=== PATIENT | female | born 1945 ===

== ENCOUNTER 2016-07-05 13:29 | Observation (INO) | payer OTHER ==
[2016-07-05] MEDS ORDERED: KETOROLAC 30 MG/1 ML SDV IVP PRN (16:50)
[2016-07-05] MEDS ORDERED: ONDANSETRON 4 MG/2 ML VIAL IVP PRN (16:50)
[2016-07-05] MEDS ORDERED: ACETAMINOPHEN 325 MG TAB PO PRN (16:50)
--- NOTE | 2016-07-05 17:33 | GHP ---
[f rep st] HISTORY AND PHYSICAL DATE OF ADMISSION: 07/05/2016 DATE OF EVALUATION: 07/05/2016 CHIEF COMPLAINT: Chest pain. HISTORY: The patient is a 71-year-old female, transferred here from [facility]. She is visiting from [place] and arrived last Saturday. Shortly after arrival, she developed shortness of breath. Last evening, she developed chest pain. This was a left-sided chest pain, radiating to her shoulder and scapula. She describes it as a stabbing, pleuritic pain. She did have a similar pain, around [place] time while she was in [place]. She presented this morning to [facility] and had an observation there. CT angiogram of the chest was negative for pulmonary embolus. She had negative troponins but did have some anterior T-wave inversions, and so she was transferred down to [place] for stress testing, which is not available in [place]. PAST MEDICAL HISTORY: 1. Hypertension. 2. Pulmonary embolus x2; the first one was , the second one was related to a breast reduction surgery and both considered provoked. 3. GERD. 4. Hypothyroidism. 5. Chronic pancreatitis, recently diagnosed of unknown etiology. She recently had an ERCP with bile duct dilatation and an endoscopic ultrasound in [place]. 6. Hyperlipidemia. PAST SURGICAL HISTORY: 1. Appendectomy. 2. Cholecystectomy. 3. Hysterectomy. MEDICATIONS: Please see the computer record for a full, detailed list. ALLERGIES: Penicillin and lisinopril. SOCIAL HISTORY: No smoking. No alcohol. She lives with her . She is a retired nurse. She lives in [facility] and vacationing at the [facility] in [place]. REVIEW OF SYSTEMS: Complete review of systems obtained. Review of systems negative on constitutional, HEENT, GI, pulmonary, cardiovascular, , hematologic, endocrine, and psych, except for positives as in HPI. FAMILY HISTORY: Her brother had a heart attack in his 50s. PHYSICAL EXAMINATION: GENERAL: Well-developed, well-nourished female, in no acute distress. VITAL SIGNS: Temperature is 36.8, pulse 48, blood pressure is 128/21, saturating 93% on room air. Eye examination: Normal conjunctiva. Pupils reactive to light. ENT: Normal ears and nose. Hearing intact. Normal teeth. Oropharynx moist. NECK: Trachea midline. No thyromegaly. CHEST: Normal effort. LUNGS: Clear to auscultation bilaterally. CARDIOVASCULAR: Regular rhythm. No murmur. No lower extremity edema. ABDOMEN: Soft, nontender. No hepatosplenomegaly. SKIN: Warm, dry, intact. No rash. MUSCULOSKELETAL: No cyanosis or clubbing. Strength 5/5 upper and lower extremities. NEUROLOGIC: Cranial nerves intact. Normal sensation to light touch. PSYCHIATRIC: Alert and oriented x3. Normal affect. Normal judgment. Normal memory. Medical records reviewed from [place]. She had a CT angiogram of the chest that was negative for pulmonary embolus. There was a very small right pleural effusion. Admission history and physical was reviewed. She presented complaining of chest pain since the evening before. EKG reviewed my personal interpretation is sinus rhythm, some anterior T-wave inversions V1 and V2. Multiple EKGs reviewed. One of them has a deeper T-wave inversion in V2, which may be lead placement. ASSESSMENT/PLAN: 1. Chest pain. Troponins have been negative at [place]. She does, however , have some anterior T-wave inversions. We will continue to follow serial troponins and EKGs. We will continue her aspirin and check a lipid panel. Will order an exercise stress test with nuclear medicine in the morning. I query whether many of her symptoms may have been altitude related. 2. Pulmonary embolus x2. Both of these episodes were provoked. Her CTA, done at [place], was negative for PE. She is, however, high risk and will be given deep Lovenox at prophylactic doses. 3. Chronic pancreatitis of unclear etiology. We will continue her pancreatic enzymes. 4. Hypertension. Home medications will be clarified and continued. CODE STATUS: Full. ADMISSION STATUS: Will admit to observation, as she may be able to discharge tomorrow if stress testing is negative. I did recommend that she not return to [place] and remain at a lower altitude. DVT PROPHYLAXIS: Will prescribe subcutaneous Lovenox, as discussed above. /[id number]/MODL MTDD
[2016-07-05] MEDS ORDERED: hydrALAZINE 20 MG/ML VIAL IVP PRN (18:35)
[2016-07-05] MEDS ORDERED: HYDROCHLOROTHIAZIDE 12.5 MG CAP PO SCH (20:00)
[2016-07-05] MEDS ORDERED: traZODone 50 MG TAB PO SCH (21:00)
[2016-07-05] MEDS ORDERED: PREGABALIN 75 MG CAP PO SCH (21:00)
[2016-07-06] MEDS ORDERED: LEVOTHYROXINE 75 MCG TAB PO SCH (06:00)
[2016-07-06 07:58] VITALS: RESP 16
[2016-07-06] MEDS ORDERED: CETIRIZINE 10 MG TAB PO SCH (09:00)
[2016-07-06] MEDS ORDERED: ENOXAPARIN 40 MG/0.4 ML SYR SC SCH (09:00)
[2016-07-06] MEDS ORDERED: BISOPROLOL FUMARATE 5 MG TAB PO SCH (09:00)
[2016-07-06] MEDS ORDERED: PANTOPRAZOLE SODIUM 40 MG TAB PO SCH (09:00)
[2016-07-06] MEDS ORDERED: ASPIRIN EC 81 MG TAB PO SCH (09:00)
[2016-07-06] MEDS ORDERED: Ropinirole Hcl [Requip Xl] 4 MG PO SCH (09:00)
[2016-07-06] MEDS ORDERED: KETOCONAZOLE 2% 15 GM CREAM TP SCH (09:00)
[2016-07-06] MEDS ORDERED: ESCITALOPRAM OXALATE 10 MG TAB PO SCH (09:00)
[2016-07-06] MEDS ORDERED: ATORVASTATIN CALCIUM 10 MG TAB PO SCH (09:00)
[2016-07-06] MEDS ORDERED: REGADENOSON 0.4 MG/5 ML SYR IVP ONE (10:38)
[2016-07-06 11:59] VITALS: BP 132/64; PULSE 63; TEMP 98.3; O2SAT 93
--- NOTE | 2016-07-06 12:11 | CPR ---
[f rep st] NONINVASIVE CARDIAC PROCEDURE REPORT DATE OF PROCEDURE: 07/06/2016 PROCEDURE: Lexiscan nuclear stress test. INDICATION: The patient is a 71-year-old female who presented to the hospital complaining of sharp b ack discomfort which radiated to her chest and arm. The discomfort occurred while she was resting an d was persistent, which prompted her to seek medical treatment. Her discomfort was relieved with nit roglycerin and oxygen in the ER. Her risk factors for coronary artery disease include hypertension, hyperlipidemia, and a family history of coronary disease. Her brother and grandfather both have a hi story of coronary disease. DESCRIPTION OF PROCEDURE: Consent was obtained and the patient was placed on continuous telemetry. Her resting EKG revealed sinus bradycardia with a rate of 56. She has T-wave abnormalities in V2 and V3. There is ST elevation in the inferior leads consistent with a repolarization abnormality. Sami sweeney we attempted to exercise. She walked on the treadmill for just under 6 minutes and complained of 5/10 back discomfort at approximately 4 minutes into exercise. She also developed fairly signific ant shortness of breath and therefore the exercise portion of the study was discontinued. She did re ceive a bisoprolol yesterday morning. She reached a heart rate of 121 beats per minute, but unfortun ately she did not reach 85% of her age-predicted maximum heart rate. I did not feel she was going to be able to walk for an additional minute after injection and therefore she was switched over to Iveth scan. While she complained of chest discomfort, her EKG showed normal sinus rhythm with slightly fla ttening of her ST's in the anterior leads. She remained in normal sinus rhythm with the Lexiscan inf usion. She did have shortness of breath, but that was secondary to exercise and not necessarily the infusion. Her blood pressure at rest was 118/74 and it returned to baseline early in the recovery ph ase. PLAN: Await nuclear images. /[id number]/MODL
--- NOTE | 2016-07-06 12:37 | NM ---
Nuclear Medicine Myocardial Perfusion Stress and Rest Imaging With Lexiscan History: Chest pain. Comparison Studies: None available. Technique: Rest imaging performed with intravenous administration of 10.8 mCi of technetium 99m labe led sestamibi. Stress imaging performed with the intravenous administration of 25.1 mCi of technetium 99m sestamibi labeled with the administration of 0.4 mg of Lexiscan. Findings: Normal left ventricular ejection fraction of 86%. Stress and rest imaging demonstrates no e vidence of fixed or reversible defects to suggest ischemia or infarct. No focal wall motion abnormali ties. Impression: 1. Normal left ventricular ejection fraction of 86%. 2. No focal wall motion abnormalities. 3. No definite ischemia or infarct.
--- NOTE | 2016-07-06 13:03 | CPEKG ---
Heart Rate: 53 RR Interval: 1132 P-R Interval: 196 QRSD Interval: 88 QT Interval: 496 QTC Interval: 466 P Robertson: 35 QRS Robertson: -2 T Wave Robertson: 34 EKG Severity - NORMAL ECG - EKG Impression: SINUS RHYTHM Electronically Signed By: Johanny Prakash 06-Jul-2016 17:11:53
[2016-07-06] MEDS: CREON 24 CAP PO SCH ×2 (13:27→13:32)
--- NOTE | 2016-07-06 22:08 | GDS ---
[f rep st] DISCHARGE SUMMARY DISCHARGE DIAGNOSES: Include: 1. Chest pain. 2. Hypertension. 3. History of pulmonary embolism x2. 4. Gastroesophageal reflux disease. 5. Hypothyroidism. 6. Chronic pancreatitis, etiology undetermined. 7. Hyperlipidemia. HISTORY OF PRESENT ILLNESS: A 71-year-old female with several cardiac risk factors who presents from [facility] with complaints of chest pain. A CT angiogram at the outside facility was negative for PE. Patient was transferred for cardiac stress testing. For details of patient's init ial presentation, please see the History and Physical dated 07/05/2016. CONSULTATIVE SERVICES: None. PROCEDURES: On 07/06/2016, patient had a myocardial perfusion scan that showed normal left ventricul ar ejection fraction with normal wall motion and no inducible ischemia. HOSPITAL COURSE: By issue: Chest pain. The patient had negative troponins and EKGs, had successful negative stress imaging. She will be discharged on her current medication management for her medica l comorbidities. She is to follow with her primary care provider upon returning home to [place]. MEDICATIONS: At the time of disposition, please reference the medication reconciliation printed on 0 07/06/2016. FOLLOWUP: Followup appointments for this patient include with her PCP upon returning home. PENDING STUDIES: At the time of this dictation are none. TIME SPENT: I spent greater than 30 minutes in the planning and coordination of this discharge. /[id number]/MODL
[2016-07-08] MEDS ORDERED: ESTRADIOL 42.5 GM CRTUBE VG SCH (08:00)
== END 2016-07-06 15:21 | disposition home or self-care (01) ==
LOC: F2W 15:54 → INTOOBSV 15:54 → UNDODISIN 17:08
PROVIDERS: ADMIT Internal Medicine; ATTEND Hospitalist
DX: R07.89 Other chest pain (principal); I10 Essential (primary) hypertension; Z86.711 Personal history of pulmonary embolism; K21.9 Gastro-esophageal reflux disease without esophagitis; E03.9 Hypothyroidism, unspecified; K86.1 Other chronic pancreatitis; E78.5 Hyperlipidemia, unspecified; Z88.0 Allergy status to penicillin
CPT/HCPCS: 78452; 93005; 93017; A9500; G0378; J1650; J1885; J2785